=== PATIENT | female | born 1980 | race Caucasian/White ===

== ENCOUNTER 2022-10-21 16:26 | Emergency (ER) | payer BC ==
--- NOTE | 2022-10-21 16:47 | ERPHSYRPT ---
- History of Present Illness Time Seen by Provider: 10/21/22 16:42 Source: patient Exam Limitations: no limitations Physician History: Patient is a 42-year-old female who presents with a complaint of a painful right foot. She first noted the pain at the end of June she has continued to hike and walk and the last 2 weeks the pain is gotten much worse. The pain tracks along the extensor tendon for the right great toe. She says at times it does get hot to the touch and and erythematous.The patient is concerned that she might have a fracture and requests an x-ray. Method of Injury: unknown Occurred: other (Pain has been present since June getting worse the last 2 weeks) Quality: constant, aching Severity of Pain-Max: severe Severity of Pain-Current: moderate Lower Extremities Pain: foot: right (Patient is tender along the extensor tendon for the great toe.) Modifying Factors: Improves With: cold therapy, immobilization Allergies/Adverse Reactions: Penicillins Adverse Reaction (Verified 10/21/22 16:32) Hives - Review of Systems Constitutional: No Fever, No Chills Eyes: No Symptoms Ears, Nose, & Throat: No Symptoms Respiratory: No Cough, No Dyspnea Cardiac: No Chest Pain, No Edema, No Syncope Abdominal/Gastrointestinal: No Abdominal Pain, No Nausea, No Vomiting, No Diarrhea Genitourinary Symptoms: No Dysuria Musculoskeletal: Joint Pain, No Back Pain, No Neck Pain Skin: No Rash Neurological: No Dizziness, No Focal Weakness, No Sensory Changes Psychological: No Symptoms Endocrine: No Symptoms All Other Systems: Reviewed and Negative - Past Medical History Neurological History: No Pertinent History Cardiac History: No Pertinent History Respiratory History: No Pertinent History Endocrine Medical History: No Pertinent History Musculoskeletal History: Other Other Medical History: PELVIC ISSUES - ASSESSED FOR ENDOMETRIOSIS/OVARIAN CYST. - Female History Hx Now: No - Nursing Vital Signs Nursing Vital Signs: Initial Vital Signs Temperature 98.4 F 10/21/22 16:34 Pulse Rate 105 H 10/21/22 16:34 Respiratory Rate 15 10/21/22 16:34 Blood Pressure 169/88 10/21/22 16:34 O2 Sat by Pulse Oximetry 100 10/21/22 16:34 Pain Scale Pain Intensity [Right Foot] 5 Pain Intensity 5 - Physical Exam General Appearance: mild distress, alert Eyes, Ears, Nose, Throat Exam: moist mucous membranes Neck Exam: non-tender, supple Cardiovascular/Respiratory Exam: normal breath sounds, no respiratory distress (Airway intact) Back Exam: normal inspection, normal range of motion Hips Exam: bilateral: non-tender, normal inspection, normal range of motion Legs Exam: bilateral leg: non-tender, normal inspection, normal range of motion Knees Exam: bilateral knee: non-tender, normal inspection, normal range of motion Ankle Exam: bilateral ankle: non-tender, normal inspection, normal range of motion Foot Exam: right foot: bone tenderness, limited range of motion, pain, soft tissue tenderness Neuro/Tendon Exam: no evidence tendon injury (But there is evidence of tenderness along the tendon to the great toe) Skin Exam: normal color, warm, dry SpO2 Interpretation: normal SpO2: 100 O2 Delivery: Room Air - Course Nursing assessment & vital signs reviewed: Yes - Radiology Exams Foot X-ray Interpretation: Interpreted by me, Negative Ordered Tests: Active Orders 24 hr Category Date Time Status FOOT (MINIMUM 3 VIEWS) Stat Exams 10/21/22 16:54 Completed - Progress Progress: unchanged - Departure Departure Disposition: Home Clinical Impression: Tendinitis Condition: Stable Critical Care Time: No Referrals: STACY REESE [Primary Care Provider] - Follow up/PCP as directed Instructions: Tendinopathy (DC) Prescriptions: Methylprednisolone Packet [Medrol Dosepack] 4 mg PO UD #1 packet Diclofenac Sodium 50 mg [Voltaren 50 mg] 50 mg PO TID 10 Days #30 tablet
[2022-10-21 16:48] VITALS: O2SAT 100
--- NOTE | 2022-10-21 17:02 | XRAY ---
Indication: First-second metatarsal pain. Twisting injury months ago. Comparison: None 3 nonweightbearing views right foot demonstrates small posterior heel spur. No other bony, articular, or soft tissue abnormalities.
[2022-10-21 17:33] VITALS: BP 133/86; PULSE 97
== END 2022-10-21 17:33 | disposition home or self-care (01) ==
LOC: ED 16:26
DX: M77.8 Other enthesopathies, not elsewhere classified (principal); M79.671 Pain in right foot; Z79.52 Long term (current) use of systemic steroids
CPT/HCPCS: 73630; 99282